=== PATIENT | female | born 2000 | race Caucasian/White ===

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

== ENCOUNTER 2020-09-28 20:59 | Outpatient (CLI) | payer MEDICAID ==
[2020-09-28 22:46] LABS: APPEARANCE,URINE CLEAR; BILIRUBIN,URINE NEGATIVE (NEGATIVE); COLOR,URINE YELLOW; GLUCOSE, URINE NEGATIVE (NEGATIVE); KETONES,URINE NEGATIVE (NEGATIVE); LEUKOCYTE ESTERASE,URINE NEGATIVE (NEGATIVE); NITRITE,URINE NEGATIVE (NEGATIVE); PROTEIN,URINE NEGATIVE (NEGATIVE); URINE SPECIFIC GRAVITY 1.012
[2020-09-28 22:47] LABS: BACTERIA (WET MOUNT) 3+ BACTERIA SEEN; EPITHELIALS (WET MOUNT) 3+ EPITHELIALS SEEN; RBCS (WET MOUNT) 4+ RBCS SEEN; T.VAGINALIS (WET MOUNT) NO TRICHOMONAS SEEN; WBCS (WET MOUNT) FEW WBCS SEEN; YEAST (WET MOUNT) NO YEAST SEEN
--- NOTE | 2020-09-28 22:54 | PDOC PROGRESS REPORT ---
Subjective Date:: 09/28/20 Subjective:: vaginal spotting after intercourse Reason For Visit: EVALUATION OF LABOR AND PRESENTING OBSTETRIC Physical Exam - Physical Exam Vital Signs: Intake & Output 09/27/20 09/28/20 09/29/20 06:59 06:59 06:59 Weight 71.9 kg General appearance: PRESENT: no acute distress, well-developed, well-nourished Head exam: PRESENT: atraumatic, normocephalic Cardiovascular exam: PRESENT: bradycardia Pulses: PRESENT: normal dorsalis pedis pul, +2 pedal pulses bilateral Vascular exam: PRESENT: normal capillary refill GI/Abdominal exam: PRESENT: normal bowel sounds, soft, other - gravid. c/o round ligament pain. ABSENT: distended, guarding, mass, organolmegaly, rebound, tenderness Rectal exam: PRESENT: deferred Extremities exam: PRESENT: full ROM. ABSENT: calf tenderness, clubbing, pedal edema Neurological exam: PRESENT: alert, awake, oriented to person, oriented to place, oriented to time, oriented to situation, CN II-XII grossly intact. ABSENT: motor sensory deficit Skin exam: PRESENT: dry, intact, warm. ABSENT: cyanosis, rash - Gynecological Exam Labia: normal Perineum: normal Vagina: normal Cervix: discharge - closed, old blood in vault, no active bleeding from cervix, other - Obstetrical Exam External Genitalia: normal Vagina: normal Dilation (cm): 0 Effacement (%): 0 Station: -4 Tender: No Adhexa: normal Result Laboratory Results: 09/28/20 09/28/20 22:00 22:22 Urine Color YELLOW Urine Appearance CLEAR Urine pH 7.0 Ur Specific [place] 1.012 Urine Protein NEGATIVE Urine Glucose (UA) NEGATIVE Urine Ketones NEGATIVE Urine Blood MODERATE H Urine Nitrite NEGATIVE Ur Leukocyte Esterase NEGATIVE Urine WBC (Auto) 2 Urine RBC (Auto) 86 Blood Type B POSITIVE Antibody Screen NEGATIVE Assessment & Plan - Diagnosis (1) Vaginal bleeding in Is this a current diagnosis for this admission?: Yes Plan: secondary to intercourse. No active bleeding now. Awaiting lab tests. US formal result pending. No appearance of abruption or active labor. No contractions or further bleeding. Precautions reviewed and education provided. Official US unremarkable. Wet prep negative, tox screen negative. Discrepancy noted in Blood type b/w what we obtained and her records. A copy will be provided to patient so that she may inform her provider. She currently follows with [facility]. GC/CT negative Discharge to home with f/u with provider. Strict precautions given to return with further bleeding - Time Time Spent with patient: 15-24 minutes Medications reviewed and adjusted accordingly: Yes Anticipated discharge: Home Anticipated DC Timeframe: within 24 hours - Inpatient Certification Based on my medical assessment, after consideration of the patient's comorbidities, presenting symptoms, or acuity I expect that the services needed warrant INPATIENT care.: No I certify that my determination is in accordance with my understanding of Medicare's requirements for reasonable and necessary INPATIENT services [42 CFR 412.3e].: No Post Hospital Care: D/C Application Development Specialist Documentation - Plan Summary Plan Summary: limited care
--- NOTE | 2020-09-28 23:09 | RADIOLOGY REPORT (SQ) ---
EXAM DESCRIPTION: U/S OB LIMITED RadLex: US LIMITED CLINICAL HISTORY: 20 years Female; cvx length, efw, ega, pres, plac, fluid, bleeding; TECHNIQUE: Transabdominal obstetrical ultrasound was performed. COMPARISON: None. FINDINGS: Number of fetuses: Single position: Vertex BPD: 35 weeks 6 days HC: 36 weeks 6 days AC: 32 weeks 3 days FL: 35 weeks 2 days EFW: 2335 g, 29% HR: 128 BPM Anatomy: Grossly normal on this limited survey exam Amniotic fluid: CORBY 15 cm, adequate. Clear Cervix: 2.9 cm, closed Placenta: Posterior IMPRESSION: 1. Single viable IUP. No acute findings. 2. EGA 35 weeks 1 day, DELANO 11/01/2020
[2020-09-28 23:19] LABS: URINE BARBITURATES SCREEN NEGATIVE; URINE BENZODIAZEPINES SCREEN NEGATIVE; URINE COCAINE SCREEN NEGATIVE; URINE MARIJUANA (THC) SCREEN NEGATIVE; URINE METHADONE SCREEN NEGATIVE; URINE PHENCYCLIDINE SCREEN NEGATIVE
[2020-09-28 23:22] LABS: URINE AMPHETAMINES SCREEN NEGATIVE
[2020-09-29] LABS: CHLAM PCR NOT DETECTED (NOT DETECT)
--- NOTE | 2020-09-29 00:20 | Non Stress Test Report ---
Non Stress Test Datetime Report Generated by CPN: 09/29/2020 00:19 DEMOGRAPHIC EGA NST: 35.1 INDICATION Indication for Study (NST) Other: Gestational age greater than 32 weeks VITAL SIGNS Temperature - NST: 98.2 Pulse - NST: 77 RESP - NST: 17 NBPSYS NST: 85 NBPDIA NST: 50 MONITORING Monitor Explained: Monitor Explained; Test Explained; Patient Verbalized Understanding Time on Monitor: 09/28/2020 23:15 Time off Monitor: 09/29/2020 00:01 NST Duration: 46 NST INTERVENTIONS NST Interventions: PO Hydration; Reposition Patient Physician Notified NST: Dr. Ruth BABY A: [id number] BABY A Movement : Present Contraction Frequency : irregular, occasional FHR Baseline : 115 Accelerations : 15X15 Decelerations : None Variability : Moderate 6-25bpm NST Review: Meets Criteria for Reactive NST NST Review and Verified By : Bipin Ramos RN NST Results: Reactive NST REPORT Report Trigger: Send Report
== END 2020-09-29 00:15 | disposition home or self-care (01) ==
LOC: LC 20:59
PROVIDERS: ATTEND Student in an Organized Health Care Education/Training Program
DX: O46.93 Antepartum hemorrhage, unspecified, third trimester (principal); Z3A.35 35 weeks gestation of pregnancy
CPT/HCPCS: 36415; 59025; 76815; 80307; 81001; 86850; 86900; 86901; 87210; 87491; 87591